=== PATIENT | female | born 1970 | race Caucasian/White ===

== ENCOUNTER 2022-12-28 20:27 | Inpatient (IN) | payer SELFPAY ==
[2022-12-28 21:03] LABS: Absolute Lymphocytes (CBC) 2.8 K/uL (0.7-4.9); Hematocrit 41.4 % (36.0-45.0); Lymphocytes % 29.7 % (15.3-44.8); MCV 91.2 fL (80-100); MPV 8.6 fL (7.6-11.3); RBC Red Blood Cell Count 4.53 M/uL (3.86-4.86)
[2022-12-28] MEDS ORDERED: FAMOTIDINE 20 MG/2 ML VIAL IV ONE (21:04)
[2022-12-28] MEDS ORDERED: ONDANSETRON 4 MG/2 ML VIAL ONE (21:04)
[2022-12-28] MEDS ORDERED: MORPHINE 4 MG/ML SYR ONE (21:04)
[2022-12-28] MEDS ORDERED: NA CHLORIDE 0.9% 1,000 ML ONE ×2 (21:04→23:49)
[2022-12-28 21:13] LABS: Albumin 3.8 g/dL (3.4-5.0); Bilirubin Total 0.4 mg/dL (0.2-1.0); Potassium 3.5 mmol/L (3.5-5.1); Protein, Total 7.4 g/dL (6.4-8.2)
--- NOTE | 2022-12-28 22:05 | RAD REPORT ---
EXAM DESCRIPTION: US - Abdomen Exam Limited - 12/28/2022 9:54 pm CLINICAL HISTORY: ABD PAIN COMPARISON: No comparisons FINDINGS: The gallbladder demonstrates large shadowing gallstone. No pericholecystic fluid. The gall bladder wall is mildly thickened. The common bile duct is normal measuring 4-5 mm. The liver demonstrates no findings of intrahepatic biliary dilatation. IMPRESSION: Cholelithiasis with mild gallbladder wall thickening.
[2022-12-28] MEDS ORDERED: HYDROMORPHONE HCL 1 MG/ML INJ ONE (22:26)
[2022-12-28 22:57] LABS: SARS-CoV-2 Antigen Rapid Res Negative (Negative)
--- NOTE | 2022-12-28 23:34 | ER ---
Nurse's Notes [facility] Name: Gracy Cai Age: 52 yrs Sex: Female : 1970 Arrival Date: 12/28/2022 Time: 20:28 Bed 9 Private MD: Diagnosis: Other cholelithiasis without obstruction-with wall thickening Presentation: 12/28 20:30 Chief complaint: Patient states: C/o RUQ pain, nausea, dizziness, and whole body ll3 tingling since last night, states pain went away and came back today around 5 PM, states pain is 9/10. Coronavirus screen: Vaccine status: Patient reports being unvaccinated. At this time, the client does not indicate any symptoms associated with coronavirus-19. Ebola Screen: No symptoms or risks identified at this time. Initial Sepsis Screen: Does the patient meet any 2 criteria? No. Patient's initial sepsis screen is negative. Does the patient have a suspected source of infection? No. Patient's initial sepsis screen is negative. Risk Assessment: Do you want to hurt yourself or someone else? Patient reports no desire to harm self or others. Onset of symptoms was December 27, 2022. Care prior to arrival: betito Martinez, and Lashawn. 20:30 Method Of Arrival: Ambulatory ll3 20:30 Acuity: LAWSON 3 ll3 Triage Assessment: 20:34 General: Appears uncomfortable, Behavior is calm, cooperative. Pain: Complains of pain ll3 in right upper quadrant Pain radiates to right low back Pain currently is 9 out of 10 on a pain scale. Quality of pain is described as sharp, Pain began 2-3 days ago. Is continuous. GI: Reports upper abdominal pain, nausea. Derm: Skin is pink, warm \\T\\ dry. 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 - Social history:: Smoking status: Patient reports the use of cigarette tobacco products, smokes one-half pack cigarettes per day. Screenin:52 [facility] ED Fall Risk Assessment (Adult) Score/Fall Risk Level 0 - 2 = Low Risk. Abuse as6 screen: Denies threats or abuse. Denies injuries from another. Nutritional screening: No deficits noted. Tuberculosis screening: No symptoms or risk factors identified. Assessment: 20:54 General: Appears uncomfortable, Behavior is cooperative, restless. Pain: Complains of as6 pain in right upper quadrant Pain radiates to back. Neuro: Level of Consciousness is awake, alert, obeys commands, Oriented to person, place, time, situation. Cardiovascular: Capillary refill < 3 seconds Patient's skin is warm and dry. Respiratory: Respiratory effort is even, unlabored, Respiratory pattern is regular, symmetrical. GI: Abdomen is tender to palpation in right upper quadrant Reports upper abdominal pain, nausea. 21:13 General: Appears uncomfortable. as6 22:30 General: "I'm already starting to feel better with that medicine" . as6 12/29 00:52 General: pt ambulating to bathroom . as6 Vital Signs: 12/28 20:30 BP 158 / 84; Pulse 79; Resp 18; Temp 98.2(O); Pulse Ox 99% on R/A; Weight 97.52 kg (R); ll3 Height 5 ft. 7 in. (170.18 cm) (R); Pain 9/10; 21:13 BP 136 / 92; Pulse 83; Resp 18 S; Pulse Ox 100% on R/A; as6 22:30 BP 101 / 72; Pulse 82; Resp 17 S; Temp 98.5(O); Pulse Ox 96% on R/A; ll3 12/29 00:57 BP 118 / 80; Pulse 82; Resp 18 S; Pulse Ox 98% on R/A; as6 12/28 20:30 Body Mass Index 33.67 (97.52 kg, 170.18 cm) ll3 ED Course: 12/28 20:28 Patient arrived in ED. as 20:34 Triage completed. ll3 20:34 Arm band placed on. ll3 20:35 Dick Connelly, STEPHANIE is Primary Nurse. as6 20:36 Codi Small FNP-C is [facility]. kb 20:36 Rajesh Rivera MD is Attending Physician. kb 20:46 Inserted saline lock: 20 gauge in right forearm, using aseptic technique. Blood as6 collected. 20:53 Bed in low position. Call light in reach. Side rails up X 1. Adult w/ patient. Pulse ox as6 on. NIBP on. Warm blanket given. 21:54 US Abdomen Limited In Process Unspecified. EDMS 23:34 Yfn Carrera MD is Hospitalizing Provider. kb 12/29 00:52 No provider procedures requiring assistance completed. Patient admitted, IV remains in as6 place. Administered Medications: 12/28 21:05 Drug: morphine 4 mg Route: IVP; Infused Over: 4 mins; Site: right forearm; as6 22:37 Follow up: Response: No adverse reaction as6 21:05 Drug: Zofran (Ondansetron) 4 mg Route: IVP; Site: right forearm; as6 22:37 Follow up: Response: No adverse reaction as6 21:05 Drug: NS 0.9% 1000 ml Route: IV; Rate: 1000 ml; Site: right forearm; as6 22:37 Follow up: Response: No adverse reaction; IV Status: Completed infusion; IV Intake: as6 1000ml 21:05 Drug: Pepcid (famotidine) 20 mg Route: IVP; Site: right forearm; as6 22:37 Follow up: Response: No adverse reaction as6 22:26 Drug: Dilaudid (HYDROmorphone) 1 mg Route: IVP; Site: right forearm; ll3 22:37 Follow up: Response: No adverse reaction as6 23:58 Drug: Zosyn (piperacillin-tazobactam) 3.375 grams Route: IVPB; Infused Over: 60 mins; as6 Site: right forearm; 12/29 00:57 Follow up: Response: No adverse reaction; IV Status: Completed infusion; IV Intake: as6 100ml 12/28 23:58 Drug: NS 0.9% 1000 ml Route: IV; Rate: 125 ml/hr; Site: right forearm; as6 12/29 01:57 Follow up: Response: No adverse reaction; IV Status: Infusion continued upon admission; as6 IV Intake: 300ml Medication: 12/28 20:54 VIS not applicable for this client. as6 Intake: 22:37 IV: 1000ml; Total: 1000ml. as6 12/29 00:57 IV: 100ml; Total: 1100ml. as6 01:57 IV: 300ml; Total: 1400ml. as6 Outcome: 12/28 23:34 Decision to Hospitalize by Provider. kb 12/29 00:52 Condition: stable as6 Instructed on the need for admit. 01:56 Admitted to Tele accompanied by tech, family with patient, via wheelchair, room 414, as6 with chart, Report called to Reginald BROWN 01:57 Patient left the ED. as6 Signatures: Dispatcher [employer] EDCodi Hogan, JEREMIAS STEVENSON-Halima Barreto Ashby, RN RN as6 Charisma Fernandez RN RN ll3
--- NOTE | 2022-12-28 23:34 | EDPHYS ---
Physician Documentation [facility] Name: Gracy Cai Age: 52 yrs Sex: Female : 1970 Arrival Date: 12/28/2022 Time: 20:28 Bed 9 Private MD: RAQUEL Physician Rajesh Rivera HPI: 12/28 23:35 This 52 yrs old Female presents to ER via Ambulatory with complaints of Abdominal Pain. kb 23:35 The patient presents with abdominal pain in the right upper quadrant. Onset: The kb symptoms/episode began/occurred last night. The symptoms do not radiate. Associated signs and symptoms: Pertinent positives: nausea, Pertinent negatives: diarrhea, fever, vomiting. The symptoms are described as intermittent. Modifying factors: The symptoms are alleviated by nothing, the symptoms are aggravated by nothing. Severity of pain: At its worst the pain was severe in the emergency department the pain is unchanged. The patient has not experienced similar symptoms in the past. The patient has not recently seen a physician. Pt reports RUQ pain that started yesterday, went away and came back tonight. Reports pain hasn't eased up today. 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 - Social history:: Smoking status: Patient reports the use of cigarette tobacco products, smokes one-half pack cigarettes per day. ROS: 23:34 Constitutional: Negative for fever, chills, and weight loss. kb 23:34 Abdomen/GI: Positive for abdominal pain, nausea. kb 23:34 All other systems are negative. Exam: 23:34 Constitutional: This is a well developed, well nourished patient who is awake, alert, kb and in no acute distress. Head/Face: Normocephalic, atraumatic. ENT: Moist Mucous membranes Cardiovascular: Regular rate and rhythm with a normal S1 and S2. No gallops, murmurs, or rubs. No pulse deficits. Respiratory: Respirations even and unlabored. No increased work of breathing. Talking in full sentences Skin: Warm, dry with normal turgor. Normal color. MS/ Extremity: Pulses equal, no cyanosis. Neurovascular intact. Full, normal range of motion. Neuro: Awake and alert, GCS 15, oriented to person, place, time, and situation. Moves all extremities. Normal gait. 23:34 Abdomen/GI: Inspection: abdomen appears normal, Bowel sounds: normal, Palpation: soft, in all quadrants, severe abdominal tenderness, in the right upper quadrant. Vital Signs: 20:30 BP 158 / 84; Pulse 79; Resp 18; Temp 98.2(O); Pulse Ox 99% on R/A; Weight 97.52 kg (R); ll3 Height 5 ft. 7 in. (170.18 cm) (R); Pain 9/10; 21:13 BP 136 / 92; Pulse 83; Resp 18 S; Pulse Ox 100% on R/A; as6 22:30 BP 101 / 72; Pulse 82; Resp 17 S; Temp 98.5(O); Pulse Ox 96% on R/A; ll3 12/29 00:57 BP 118 / 80; Pulse 82; Resp 18 S; Pulse Ox 98% on R/A; as6 12/28 20:30 Body Mass Index 33.67 (97.52 kg, 170.18 cm) ll3 MDM: 12/28 20:36 Patient medically screened. kb 23:32 Differential diagnosis: cholecystitis, Cholelithiasis, gastritis, pancreatitis. Data kb reviewed: vital signs, nurses notes. Consideration of Admission/Observation Patient was admitted/placed on observation. Management of patient was discussed with the following: Environmental Engineering Professor: Dr Carrera called at 2200, 2300 and 2315. Text message sent at [phone] and voicemail left at [phone]. Awaiting callback. . Counseling: I had a detailed discussion with the patient and/or guardian regarding: the historical points, exam findings, and any diagnostic results supporting the discharge/admit diagnosis, lab results, radiology results, the need for further work-up and treatment in the hospital. 12/29 01:40 ED course: Dr Rivera will follow up with Dr Carrera about pt's admission. . kb 12/28 20:36 Order name: CBC with Diff; Complete Time: 21:35 kb 12/28 20:36 Order name: CMP; Complete Time: 21:16 kb 12/28 20:36 Order name: Lipase; Complete Time: 21:16 kb 12/28 20:58 Order name: US Abdomen Limited; Complete Time: 22:06 kb 12/28 22:16 Order name: SARS RAPID; Complete Time: 23:03 as6 12/28 20:36 Order name: IV Saline Lock; Complete Time: 20:47 kb 12/28 20:36 Order name: Labs collected and sent; Complete Time: 20:47 kb Administered Medications: 12/28 21:05 Drug: morphine 4 mg Route: IVP; Infused Over: 4 mins; Site: right forearm; as6 22:37 Follow up: Response: No adverse reaction as6 21:05 Drug: Zofran (Ondansetron) 4 mg Route: IVP; Site: right forearm; as6 22:37 Follow up: Response: No adverse reaction as6 21:05 Drug: NS 0.9% 1000 ml Route: IV; Rate: 1000 ml; Site: right forearm; as6 22:37 Follow up: Response: No adverse reaction; IV Status: Completed infusion; IV Intake: as6 1000ml 21:05 Drug: Pepcid (famotidine) 20 mg Route: IVP; Site: right forearm; as6 22:37 Follow up: Response: No adverse reaction as6 22:26 Drug: Dilaudid (HYDROmorphone) 1 mg Route: IVP; Site: right forearm; ll3 22:37 Follow up: Response: No adverse reaction as6 23:58 Drug: Zosyn (piperacillin-tazobactam) 3.375 grams Route: IVPB; Infused Over: 60 mins; as6 Site: right forearm; 12/29 00:57 Follow up: Response: No adverse reaction; IV Status: Completed infusion; IV Intake: as6 100ml 12/28 23:58 Drug: NS 0.9% 1000 ml Route: IV; Rate: 125 ml/hr; Site: right forearm; as6 12/29 01:57 Follow up: Response: No adverse reaction; IV Status: Infusion continued upon admission; as6 IV Intake: 300ml Disposition Summary: 12/28/22 23:34 Hospitalization Ordered Hospitalization Status: Observation kb Provider: Yfn Carrera Location: Telemetry/[facility] (observation) kb Condition: Stable kb Problem: new kb Symptoms: are unchanged kb Bed/Room Type: Standard kb Room Assignment: 414(12/29/22 01:42) cg Diagnosis - Other cholelithiasis without obstruction - with wall thickening kb Forms: - Medication Reconciliation Form kb - SBAR form kb Signatures: Dispatcher [employer] EDCodi Hogan FNP-C FNP-Ckb Garcia, Cindy, RN RN cg Dick Connelly RN RN as6 Charisma Fernandez RN RN ll3 Corrections: (The following items were deleted from the chart) 01:42 12/28 23:34 kb cg
[2022-12-28] MEDS ORDERED: PIPERACIL/TAZO 3.375 GM VIAL IV ONE (23:49)
[2022-12-28] MEDS ORDERED: NA CHLORIDE 0.9% 100 ML ONE (23:49)
[2022-12-29] MEDS ORDERED: ONDANSETRON 4 MG/2 ML VIAL IV PRN ×2 (02:09→17:04)
[2022-12-29] MEDS: NA CHLORIDE 0.9% 1,000 ML IV SCH ×4 (02:09→22:00)
[2022-12-29] MEDS: PIPER TAZO 3.375 GM in NA CHLORIDE 0.9% 100 ML IV SCH ×3 (02:09→18:20)
[2022-12-29] MEDS ORDERED: ACETAMINOPHEN 500 MG TAB PO PRN (02:09)
[2022-12-29] MEDS ORDERED: HYDROMORPHONE HCL 1 MG/ML INJ IV ONE (02:28)
[2022-12-29 03:21] VITALS: BMI 32.2
[2022-12-29 05:51] LABS: Absolute Lymphocytes (CBC) 2.3 K/uL (0.7-4.9); Hematocrit 37.7 % (36.0-45.0); Lymphocytes % 32.7 % (15.3-44.8); MCV 91.6 fL (80-100); MPV 8.6 fL (7.6-11.3); RBC Red Blood Cell Count 4.12 M/uL (3.86-4.86)
[2022-12-29 06:24] LABS: ALT/SGPT 46 U/L (13-56); AST/SGOT 32 U/L (15-37); Albumin 3.3 g/dL (3.4-5.0); Alkaline Phosphatase 61 U/L (45-117); BUN Blood Urea Nitrogen 10 mg/dL (7-18); Bicarbonate 24 mmol/L (21-32); Bilirubin Direct < 0.1 mg/dL (0-0.2); Bilirubin Total 0.4 mg/dL (0.2-1.0); Glomerular Filtration Rate 79 ml/min (=/>90); Glucose Level 95 mg/dL (74-106); Lipase 119 U/L (73-393); Potassium 4.1 mmol/L (3.5-5.1); Protein, Total 6.6 g/dL (6.4-8.2); Sodium Level 140 mmol/L (136-145)
[2022-12-29] MEDS: MORPHINE 4 MG/ML SYR IV PRN (10:15)
[2022-12-29] MEDS ORDERED: FENTANYL CITR 100 MCG/2 ML ONE ×2 (14:17→16:14)
[2022-12-29] MEDS ORDERED: propofoL 200 MG/20 ML VIAL IV ONE (14:17)
[2022-12-29] MEDS ORDERED: ROCURONIUM 50 MG/5 ML VIAL IV ONE (14:17)
[2022-12-29] MEDS ORDERED: KETOROLAC 30 MG/ML INJ ONE (14:17)
[2022-12-29] MEDS ORDERED: MIDAZOLAM HCL 2 MG/2 ML INJ ONE (14:17)
[2022-12-29] MEDS ORDERED: LIDOCAINE 2% MPF 5 ML VIAL ONE (14:17)
[2022-12-29] MEDS ORDERED: ONDANSETRON 4 MG/2 ML VIAL ONE ×2 (14:18→17:31)
--- NOTE | 2022-12-29 15:40 | P.HP ---
Date of Service: 12/29/22 PC: This 52-year-old patient presented to the emergency room with severe right upper quadrant abdominal pain for diagnosis and treatment. HPC: Been experiencing right upper quadrant abdominal pain off and on for last few months. Recently had a most severe attack. Radiating to her back. She came to the ER for evaluation PSHx: NAD PMHx: Denies any medical issues Social Hx: States she is allergic to codeine Sys R: No cough, wheeze, shortness of breath. No chest pain or palpitations. No urinary complaints O/E: Awake alert vital signs are stable HEENT: Within normal limits Chest: Air entry equal bilaterally Abd: Tender in the right upper quadrant [place]: Intact Data: Has documented gallstones Impression: Cholecystitis with cholelithiasis, biliary colic Plan: I will taken the operating room for laparoscopic possible open cholecystectomy with a cholangiogram. The risks of this procedure have been discussed. The possibility of bleeding, infection, injury to bowel his blood vessels and intestines has been described. The possible need for an open and or further surgeries and procedures was discussed. She understands and wishes to proceed.
[2022-12-29] MEDS ORDERED: dexAMETHasone 10 MG/ML VIAL ONE (16:13)
[2022-12-29] MEDS ORDERED: LABETALOL 20 MG/4ML SYRINGE IV ONE (16:17)
[2022-12-29] MEDS ORDERED: GLYCOPYRROLATE 0.2 MG/ML SYR ONE (16:25)
--- NOTE | 2022-12-29 16:57 | P.OP ---
Preoperative diagnosis: Acute on chronic cholecystitis with cholelithiasis Postoperative diagnosis: The same Primary procedure: Laparoscopic cholecystectomy Secondary procedure: Intraoperative cholangiogram Anesthesia: General Estimated blood loss: Less than 10 cc Specimen: Gallbladder and contents Operative Technique: The patient brought to the operating room and placed supine on the table. After the induction of adequate general endotracheal anesthesia, the area of the abdomen was prepped with a DuraPrep solution, she was then draped in the usual aseptic manner. Attention was turned towards the umbilicus. A subumbilical incision was made. This brought down through the skin and subcutaneous tissue. The Visiport was then used to enter the peritoneal cavity and created p neumoperitoneum to approximately 12 mmHg. Under direct vision a 5 mm trocar was placed in the upper midline, and 2 other 5 mm trocars on the right lateral side of the abdomen. The patient was then placed in reverse Trendelenburg and the table rolled to the left. We could visualize the right upper quadrant. We could see a distended and acutely inflamed edematous gallbladder. I grasped was placed on the fundus of the gallbladder. Another was placed and a Leal's pouch. We gradually began to dissected away the gallbladder from the surrounding peritoneum. There was no to be in a lot of edema in this area. The cystic duct was identified. The cystic artery was also seen. Having obtained a critical view the cystic artery was clipped and divided. Attention was turned towards the cystic duct. It was noted to be quite large and dilated in size. A opening was made into the cystic duct. We obtained thick mucoid type bile inside. We attempted to do a cholangiogram. The films were suboptimal but appeared to show contrast flowing into the duodenum. There was extravasation as it was difficult to hold the cholangiocatheter into this dilated cystic duct. At this point the catheter was removed. A clip and a tie of chromic were placed on the distal portion of the cystic duct after had been transected. The gallbladder was now dissected free from the liver bed, placed into an Endo Catch, brought out through the umbilical trocar site. At this point the abdomen was inspected to ensure adequate hemostasis. This having been done the umbilical trocar site was approximated using the Endo Close with an absorbable suture. Eckerman were then applied to the skin. At the end of the procedure she was stable and sent to the recovery room. Needle sponge instrument counts were correct. No drains were placed. Complications: None Transferred to: Recovery Room Condition: Good
[2022-12-29] MEDS ORDERED: NEOSTIGMINE 1 MG/ML -5 ML ONE (17:01)
[2022-12-29] MEDS ORDERED: NA CHLORIDE 0.9% 1,000 ML ONE (17:27)
[2022-12-29] MEDS ORDERED: PROMETHAZINE INJ 25 MG/ML AMP ONE (17:38)
--- NOTE | 2022-12-29 18:19 | RAD REPORT ---
EXAM DESCRIPTION: RAD - Cholangiogram Oper-Xray Or - 12/29/2022 6:05 pm CLINICAL HISTORY: LAP ROXANNA W/ IOC COMPARISON: Abdomen Exam Limited dated 12/28/2022 FINDINGS: Cystic duct injection was performed by operating surgeon. Common bile duct is normal calib er without evidence retained stone. Total fluoro time: 0.1 minutes IMPRESSION: No evidence of retained common duct stone.
[2022-12-29 18:57] VITALS: O2SAT 97
[2022-12-30] MEDS: PIPER TAZO 3.375 GM in NA CHLORIDE 0.9% 100 ML IV SCH ×2 (00:01→07:43)
[2022-12-30] MEDS: NA CHLORIDE 0.9% 1,000 ML IV SCH ×2 (03:58→08:09)
[2022-12-30] MEDS: MORPHINE 4 MG/ML SYR IV PRN (05:48)
[2022-12-30 08:43] VITALS: BP 109/65; TEMP 97.3
== END 2022-12-30 10:45 | disposition home or self-care (01) | DRG 419 ==
LOC: ER 20:27 → ERHOLD 23:37 → 4TH 12-29 01:49 → OBSVTOIN 12-29 15:17
PROVIDERS: ADMIT Surgery; ATTEND Surgery
PROC: BF00YZZ Plain Radiography of Bile Ducts using Other Contrast (ICD-10-PCS; 2022-12-29)
PROC: 0FT44ZZ Resection of Gallbladder, Percutaneous Endoscopic Approach (ICD-10-PCS; principal; 2022-12-29 13:30)
DX: K80.12 Calculus of gallbladder with acute and chronic cholecystitis without obstruction (principal); F17.210 Nicotine dependence, cigarettes, uncomplicated; Z88.5 Allergy status to narcotic agent; Z28.310 Unvaccinated for COVID-19; Z20.822 Contact with and (suspected) exposure to COVID-19
CPT/HCPCS: 36415; 74300; 76705; 80048; 80053; 80076; 83690; 85025; 87811; 88304; 96361; 96365; 96375; 99285; G0378; J1100; J1170; J2001; J2250; J2405; J2543; J2550; J2704; J2710; J3010; J7030